=== PATIENT | male | born 1965 | race Caucasian/White ===

== ENCOUNTER 2016-06-27 10:20 | Day surgery (SDC) | payer OTHER ==
[~2016-06-27] VITALS: Ht 175.3 cm; Wt 99.3 kg
[~2016-06-27 10:20] MED LIST: ALBU2.5V36 NEB; AMLO2.5T78 PO; BUDE6HFA INHALATION; ESCI20TA38 PO; HYDR-902 PO; HYDR-906 PO; LIPA1CAP6 PO; MONT10TA21 PO; NIT4 SL; OMEP20CA16 PO; TAMS-14 PO; TIOT18CA IH
[2016-06-27] MEDS ORDERED: abilify (11:57)
[2016-06-27 11:58] VITALS: Ht 175.3 cm; Wt 99.3 kg
[2016-06-27] MEDS ORDERED: NORVASC (12:05)
[2016-06-27 12:37] VITALS: BP 113/59; PULSE 77; RESP 18
[2016-06-27] MEDS ORDERED: PROPOFOL 40 ML ONE (13:57)
[2016-06-27] MEDS ORDERED: LIDOCAINE 2% (SDV) 5 ML INJ ONE (14:52)
[2016-06-27 15:19] VITALS: BP 113/59; PULSE 79; RESP 16
--- NOTE | 2016-06-28 14:44 | GILP ---
DATE OF PROCEDURE: NAME OF PROCEDURES: 1. Colonoscopy with polyp ablation. 2. Colonoscopy with biopsies and localization tattoo. SURGEON: Brooklynn Joseph MD. PREOPERATIVE DIAGNOSIS(ES) POSTOPERATIVE DIAGNOSIS(ES) HISTORY AND INDICATIONS: PREMEDICATION: Monitored anesthesia care by anesthesiologist. INSTRUMENT USED: Olympus colonoscope. PREPARATION: Adequate. TECHNIQUE: After informed consent, with the patient/relatives understanding the procedure, its indic ations potential risks and complications, including but not limited to: allergic reaction, bleeding, perforation, infection, missed lesions and after all pertinent questions were answered to the patie nt's satisfaction, the patient/relatives signed the witnessed informed consent. Following this, premedication was administered slowly IV push by under careful cardiovascular and re spiratory monitoring with pulse oximetry, automatic blood pressure and air sampling and monitoring. Once the sedativ e effect was achieved, the patient was placed in the left lateral decubitus position, digital rectal examination was performed. The colonoscope was then introduced and advanced under visual control th roughout all segments of the colon including: the rectum, sigmoid, descending colon, splenic flexure , transverse colon, hepatic flexure, ascending colon and finally reaching the cecum which was clearl y identified by transillumination, finger indentation and the ileocecal valve. Careful examination o f the mucosa of the lower gastrointestinal tract both on insertion as well as withdrawal of the inst rument disclosed the following findings: Rectal Examination: No evidence of perirectal disease, no masses. Colonic Mucosa: There is a 4 mm polyp in the sigmoid colon which was completely ablated with biopsy forceps. There is moderate diverticulosis in left side of the colon. A 10 mm sessile polyp was noted in the proximal ascending colon. This appears to be not endoscopica lly removable. Multiple biopsies were obtained. Localization tattoo was applied. The ileocecal va lve was clearly identified. The instrument was withdrawn reexamining the mucosa in detail. No jamaal tional abnormalities are noted with the exception of moderate-sized internal hemorrhoids. The instrument was then withdrawn, the patient tolerated the procedure well and was transferred out of the Endoscopy Suite awake and in good condition to continue recovery under observation. IMPRESSION: 1. A 10 mm sessile polyp proximal ascending colon, biopsied and localization tattoo applied. 2. Diverticulosis, left side of the colon, moderate. 3. A 4 mm polyp in the sigmoid colon, ablated. 4. Moderate-sized internal hemorrhoids. PLAN: Pathology will be reviewed as soon as available. Further recommendation will depend on the p atient's clinical course. If polyp is adenomatous, as suspected, surgical excision will be indicate d. Dictated By: BROOKLYNN CRUZ Conf#: [id number] DID#: [id number]
--- NOTE | 2016-06-28 15:29 | GILP ---
DATE OF PROCEDURE: 06/27/2016 PROCEDURE: Esophagogastroduodenoscopy with biopsies. BRIEF HISTORY AND INDICATIONS: The patient is being evaluated for abdominal pain. PREMEDICATION: Monitored anesthesia care by anesthesiologist. SURGEON: Brooklynn Joseph MD. INSTRUMENT USED: scope. TECHNIQUE: After informed consent, with the patient/relatives understanding the procedure, its indic ations, potential risks and complications, including but not limited to: allergic reaction, bleeding , perforation or infection, and after all pertinent questions were answered to the patients satisfac tion, the patient/relatives signed witnessed informed consent. Following this, premedication was administered slowly IV push under careful cardiovascular and respi ratory monitoring with pulse oximetry, automatic blood pressure and monitor car operator. Once the sedative effect was achieved the patient was place in the left lateral decubitus, the panen doscope was introduced and advanced under visual control. Careful examination of the upper gastrointestinal tract, both on insertion as well as withdrawal of the instrument disclosed the following findings: ESOPHAGUS: The mucosa of the entire esophagus appears within normal limits. There is no evidence of esophagitis, varices, neoplasm or stricture. No hiatal hernia identified. STOMACH: Upon entrance to the stomach, air was insufflated, the gastric blanchard distended normally. T here is erythema and edema of the mucosa of a moderate degree. Biopsies were obtained to rule out H . pylori infection. PYLORUS: The pylorus appears patent and within normal limits, with no evidence of gastric outlet obs truction. DUODENUM: The duodenal mucosa was carefully examined in the duodenal bulb as well as the second port ion of the duodenum and appears unremarkable with no evidence of duodenitis, ulcer or neoplasm. The instrument was then withdrawn, the patient tolerated the procedure well and was transfer out of the endoscopy suite awake, and in good condition to continue recovery under observation IMPRESSION: Gastritis, rule out Helicobacter pylori infection, biopsies obtained. PLAN: The patient will be treated with PPIs. Further recommendation will depend on his clinical co urse as well as review of biopsies. Dictated By: BROOKLYNN JOSEPH MS/GUERITA Conf#: [id number] DID#: [id number]
== END 2016-06-27 15:50 | disposition home or self-care (01) ==
LOC: GIL 10:20
PROVIDERS: ATTEND Internal Medicine Gastroenterology
DX: Z12.11 Encounter for screening for malignant neoplasm of colon (principal); D12.2 Benign neoplasm of ascending colon; D12.5 Benign neoplasm of sigmoid colon; K64.8 Other hemorrhoids; I10 Essential (primary) hypertension; E78.5 Hyperlipidemia, unspecified; E66.9 Obesity, unspecified; Z68.32 Body mass index [BMI] 32.0-32.9, adult; J44.9 Chronic obstructive pulmonary disease, unspecified; E11.9 Type 2 diabetes mellitus without complications
CPT/HCPCS: 43239; 45380; 45381; 88305; 88312; Z7610

== ENCOUNTER 2016-06-29 22:52 | Emergency (ER) | payer OTHER ==
[~2016-06-29] VITALS: Ht 177.8 cm; Wt 103.0 kg
[~2016-06-29 22:52] MED LIST changes: -AMLO2.5T78 PO; -BUDE6HFA INHALATION; -HYDR-902 PO; -HYDR-906 PO; -LIPA1CAP6 PO; -MONT10TA21 PO; -NIT4 SL; +NORVASC; -OMEP20CA16 PO; -TAMS-14 PO; -TIOT18CA IH; +abilify
[2016-06-29 22:56] VITALS: Ht 177.8 cm; Wt 103.0 kg
[2016-06-30] MEDS ORDERED: LIDOCAINE/MYLANTA 40 ML BTL PO ONE (04:00)
[2016-06-30] MEDS ORDERED: HYDROCODONE/APAP (10/325) TAB PO ONE (04:30)
--- NOTE | 2016-06-30 04:38 | RADRPT ---
PROCEDURE: XR Abdomen. CLINICAL INDICATION: Abdominal pain after colonoscopy TECHNIQUE: Upright and supine abdominal x-rays were obtained. COMPARISON: 11/11/2007 FINDINGS: The bowel gas pattern is nonobstructive. No definite free air is seen. No definite abnormal calcif ications. Mild degenerative change of the spine and hips. Right upper quadrant clips. IMPRESSION: No definite obstruction or free air. RPTAT: HLBE Keila Leon Physician Date Time Electronically viewed and signed by Keila Leon, Physician on 06/30/2016 04:37 LE/
[2016-06-30 05:24] VITALS: BP 121/68; PULSE 70; RESP 15
[2016-06-30] MEDS ORDERED: HYDR-906 PO (05:50)
[2016-06-30] MEDS ORDERED: RANI150T9 PO (05:50)
[2016-06-30] MEDS ORDERED: NAPR-688 PO (05:50)
--- NOTE | 2016-07-01 06:07 | ERD ---
DATE OF SERVICE: 06/30/2016 HISTORY OF PRESENT ILLNESS: This 50-year-old male presents to the emergency room for diffuse abdomin al pain for 2 days. He has had the pain since he had his colonoscopy performed. It is described as a generalized discomfort. Denies diarrhea. He is still passing gas. He said the findings of the colonoscopy and the ED were that he has gastritis of the stomach and no serious colon lesions. He d enies nausea or vomiting. REVIEW OF SYSTEMS: A 10-point review of systems was obtained and negative except as in the HPI. PAST MEDICAL HISTORY: COPD, hypertension. PAST SURGICAL HISTORY: Cholecystectomy, tonsillectomy, appendectomy, hernia surgery, ankle surgery, shoulder surgery. FAMILY HISTORY: Denies a family history of colon cancer. SOCIAL HISTORY: Daily smoker. He does not use other drugs or alcohol. PHYSICAL EXAMINATION: VITAL SIGNS: Temperature 98, pulse 89, blood pressure 112/64, respirations 20, oxygen saturation 99 % on room air. GENERAL: In no acute distress. HEENT: Normocephalic, atraumatic. CARDIAC: Regular rate and rhythm. No murmurs. LUNGS: Clear to auscultation bilaterally. ABDOMEN: Very mild diffuse tenderness, with very slight tympanic distention. No guarding, no rebou nd. Bowel sounds present in all 4 quadrants. EXTREMITIES: No cyanosis, clubbing or edema. NEUROLOGIC: Alert and oriented x3. No focal deficits. SKIN: No rashes or other lesions. DIAGNOSTIC DATA: Abdominal x-ray interpretation: No free air, no obstruction, no bony abnormalitie s, no abnormal calcifications. EMERGENCY DEPARTMENT COURSE AND MEDICAL DECISION MAKING: The patient was given a GI cocktail, which relieved the epigastric burning pain. He was then given Mcgehee, which significantly decreased his a bdominal pain. More than likely the discomfort is from retention of some air status post colonosco py. No signs of perforation. The patient's pain was reduced in the emergency room. the pain will continue to decrease as his body processes the air and reabsorbs it or passes it. Giving him a follow up with his primary care doctor, as well as Dr. Joseph, who performed the procedure. There is a benign abdominal exam at this time. I am discharging him with naproxen and Mcgehee for the disc omfort, as well as Zantac for the gastritis, that he says he is not getting any medication for. DISCHARGE DIAGNOSES: 1. Abdominal pain status post colonoscopy. 2. Gastritis. DISPOSITION: Home, in stable condition. Dictated By: ROSLYN HESTER/GUERITA Conf#: [id number] DID#: [id number]
== END 2016-06-30 05:58 | disposition home or self-care (01) ==
LOC: E/R 22:52
DX: G89.18 Other acute postprocedural pain (principal); R10.84 Generalized abdominal pain; K29.70 Gastritis, unspecified, without bleeding; J44.9 Chronic obstructive pulmonary disease, unspecified; I10 Essential (primary) hypertension; F17.210 Nicotine dependence, cigarettes, uncomplicated
CPT/HCPCS: 74010; Z7610

== ENCOUNTER 2016-09-04 22:13 | Emergency (ER) | payer OTHER ==
[~2016-09-04] VITALS: Ht 175.3 cm; Wt 104.5 kg
[~2016-09-04 22:13] MED LIST changes: +HYDR-906 PO; +NAPR-688 PO; +RANI150T9 PO
[2016-09-04 22:20] VITALS: Ht 175.3 cm; Wt 104.5 kg
[2016-09-05] MEDS ORDERED: ALBUTEROL/IPRATROPIUM (NEB) 3 ML AMP HHN STA (00:28)
[2016-09-05] MEDS ORDERED: HYDROCODONE/APAP (5/325) TAB PO ONE (00:30)
--- NOTE | 2016-09-05 01:07 | ERD ---
ER Documentation Chief Complaint Date/Time DATE: 09/05/16 TIME: 00:57 Chief Complaint left rib pain x 4 days. denies new injury, hx of rib fx HPI 51-year-old male with history of COPD presents with chief complaint of left and right mid axillary chest wall pain 4 days. Patient states that he has a history of a rib fracture in this area and history of pneumothorax in his left lung after an injury that occurred months ago. He denies pain over the front of his chest, palpitations, diaphoresis, nausea/vomiting, and fever. He does report mild shortness of breath, states that he is short of breath often due to his history of COPD. He states that he continues to smoke a pack and a half a day. He currently rates his rib pain 8 out of 10 in severity, took 600 mg of ibuprofen without relief. Pain is aggravated with deep inhalations and laying on his left side. ROS All systems reviewed and are negative except as per history of present illness. Medications Home Meds Active Scripts Tramadol HCl (Tramadol HCl) 50 Mg Tablet, 50 MG PO Q4 Y for PAIN, #20 TAB Prov:Katherine Branch PA-C 09/05/16 Ibuprofen* (Motrin*) 400 Mg Tab, 400 MG PO Q6, #30 TAB Prov:Katherine Branch PA-C 09/05/16 Naproxen* (Naproxen*) 500 Mg Tablet, 500 MG PO BID Y for PAIN, #20 TAB Prov:ROSLYN RODRIGUEZ DO 06/30/16 Hydrocodone/Acetaminophen ([place] 5-325 Tablet) 1 Each Tablet, 1 EACH PO Q6, #10 TAB Prov:ROSLYN RODRIGUEZ DO 06/30/16 Ranitidine Hcl* (Zantac*) 150 Mg Tablet, 150 MG PO BID Y for EPIGASTRIC PAIN, # 30 TAB Prov:ROSLYN RODRIGUEZ DO 06/30/16 Reported Medications [Norvasc] No Conflict Check 06/27/16 [abilify] No Conflict Check 06/27/16 Escitalopram Oxalate* (Escitalopram Oxalate*) 20 Mg Tablet, 30 MG PO DAILY, TAB 06/15/14 Albuterol Sulfate* (Albuterol Sulfate* Neb) 0.5%-0.5 Ml Neb, 1.25 MG NEB Q3H Y for WHEEZING AND SOB, EA 06/15/14 Allergies Allergies: Coded Allergies: penicillin G (Verified Allergy, Mild, 04/22/16) fluphenazine (Verified Allergy, Unknown, cause extrapyramidol, 04/22/16) haloperidol (Verified Allergy, Unknown, cause extrapyramidol, 04/22/16) ketorolac (Verified Allergy, Unknown, 04/22/16) olanzapine (Verified Allergy, Unknown, cause extrapyramidol, 04/22/16) ziprasidone (Verified Allergy, Unknown, 04/22/16) PMhx/Soc History of Surgery: Yes (CHOLECYSTECTOMY, TONSILLECTOMY, APPENDECTOMY, HERNIA REPAIR, ANKLE SX, SHOU) Anesthesia Reaction: No Hx Neurological Disorder: No Hx Respiratory Disorders: Yes (COPD) Hx Cardiac Disorders: Yes (HTN) Hx Psychiatric Problems: Yes (MOOD DISORDER) Hx Miscellaneous Medical Probl: Yes (DIVERTICULITIS, GERD, L rib fracture, L lung collapse p fall) Hx Alcohol Use: No Hx Substance Use: No Hx Tobacco Use: Yes (1.5 packs/ day) Smoking Status: Current some day smoker Physical Exam Vitals Vital Signs Date Time Temp Pulse Resp B/P Pulse Ox O2 Delivery O2 Flow Rate FiO2 09/05/16 00:50 75 20 98 21 09/04/16 22:20 97.0 79 20 142/65 96 Physical Exam GENERAL: Non-toxic. No apparent signs of distress. Patient speaking in full sentences without any signs of respiratory distress. HEENT: Atraumatic. Bilateral eyes are PERRL EOM intact. Normal conjunctiva, no injection. No eyelid or lower eyelid swelling noted. Ears: Normal tympanic membrane, no erythema or bulging. No ear canal swelling. No ear discharge. Nose : no nasal discharge. Throat: Oropharynx normal. Tongue pink and moist. No tonsillar swelling or tonsillar exudates. No lymphadenopathy. LUNGS: Clear to auscultation. No accessory muscle use. Mild expiratory wheezing on auscultation. No rales or rhonchi . no signs or symptoms of respiratory distress. HEART: Regular rate and rhythm. No murmurs, clicks, rubs or gallops. CHEST: Tenderness palpation over 7 through ninth ribs over left mid axillary line. Pain is reproducible with palpation to this area. No edema or ecchymosis. ABDOMEN: Soft, nontender and nondistended. Bowel sounds positive. No rebound or guarding. No gross peritoneal signs. No Helms or McBurney point tenderness. No gross masses. BACK: No midline tenderness, no costovertebral tenderness. EXTREMITIES: No peripheral cyanosis or edema. No focal pain or notable trauma. Full range of motion. Good capillary refill. NEURO: The patient moves all 4 extremities with 5/5 strength. Cranial nerves are grossly intact. Normal mental status for age. Good muscle tone. SKIN: There is no apparent rash, petechiae, erythema or swelling. Good skin turgor. Results 24 hrs Current Medications Medications (Trade) Dose Ordered Sig/Madeline Route PRN Reason Start Time Stop Time Status Last Admin Dose Admin Acetaminophen/ Hydrocodone Bitart ([place] (5/325)) 1 tab ONCE ONCE PO 09/05/16 00:30 09/05/16 00:31 DC 09/05/16 00:15 Albuterol/ Ipratropium (Duoneb) 3 ml ONCE STAT HHN 09/05/16 00:28 09/05/16 00:30 DC 09/05/16 00:50 Procedures/MDM Patient presents with complaint of chest wall pain. States that he has had history of rib fractures over right mid axillary area. It is reassuring that the pain is reproducible with palpation to this area, and is aggravated by deep inhalations. This suggests that cardiac etiology is less likely. Patient denies history of cardiac problems. States he has a history of COPD. Continues to smoke. Smoking cessation was discussed for at least 3 minutes, patient warned about health risks associated with smoking. Patient stated that pain is currently 8 out of 10 in severity. Took Motrin without relief. I ordered a [place] for pain relief in the ER, and ordered rib x-ray to confirm healing of previous rib fractures and chest x-ray to rule out pneumothorax and pneumonia. At this time a low suspicion for MO, aortic dissection, pericarditis, pneumonia , and tamponade. Awaiting results of x-ray prior to further management. Patient tolerated treatment of Stratford well, reports mild relief of pain Ribs x-ray (interpretation by radiologist): IMPRESSION: No acute fracture or subluxation. Chest x-ray (interpretation by radiologist): IMPRESSION: Mild left basilar subsegmental atelectasis and/or scarring. Patient was given a DuoNeb breathing treatment in the ER, he reported relief of his shortness of breath afterwards. Wheezing on auscultation had improved. Patient's O2 saturation in triage was 96%, and he displayed no signs of respiratory distress. I explained the imaging workup to the patient, explained that pain may be due to scarring from previous injuries or costochondritis due to chronic cough from his COPD. I suggested use of NSAIDs, patient reports allergy to Toradol on his list of allergies however when I asked him if he used ibuprofen before he says he uses Advil often without any problems. I provided a prescription of ibuprofen 400 mg along with a prescription of tramadol for episodes when his pain is not relieved by Motrin. At this time low suspicion for rib fracture, pneumothorax, and pleural effusion. Patient stable for discharge and outpatient management. Advised to follow-up with PCP of community clinic in 1-2 days. Departure Diagnosis: Primary Impression: Chest wall pain Additional Impression: Costochondritis Condition: Good Katherine Branch PA-C Sep 05, 2016 01:07
--- NOTE | 2016-09-05 01:32 | RADRPT ---
PROCEDURE: Ribs 3 views. AP view chest CLINICAL INDICATION: Pain. TECHNIQUE: 3 views of the right ribs were obtained. Single AP view chest was obtained. COMPARISON: No pertinent prior examinations were submitted for comparison. FINDINGS: No definite fracture or subluxation is identified. No destructive osseous lesions are seen. The lungs are clear. The cardiomediastinal silhouette is unremarkable. IMPRESSION: No acute fracture or subluxation. RPTAT: HIKT .Jose Eduardo Irving MD, MD Date Time Electronically viewed and signed by .Jose Eduardo Irving MD, on 09/05/2016 01:32 .T/
--- NOTE | 2016-09-05 02:29 | RADRPT ---
PROCEDURE: CHEST - 2 VIEW CLINICAL INDICATION: 51-year-old male with left-sided chest pain and cough. TECHNIQUE: PA and lateral views of the chest were performed. The images were reviewed on a PACS w orkstation. COMPARISON: Chest x-ray April 22, 2016. FINDINGS: The cardiomediastinal silhouette is within normal limits. There is mild left basilar subsegmental a telectasis and/or scarring. There is no evidence for an infiltrate. There is no evidence for conges tive heart failure. There is no evidence for pneumothorax. The osseous structures are intact. IMPRESSION: Mild left basilar subsegmental atelectasis and/or scarring. .Abdullahi Santiago MD, MD Date Time Electronically viewed and signed by .Abdullahi Santiago MD, on 09/05/2016 02:28 .Nia/
[2016-09-05] MEDS ORDERED: TRAM50TA2 PO (03:09)
[2016-09-05] MEDS ORDERED: IBUP400T22 PO (03:09)
[2016-09-05 03:18] VITALS: BP 132/61; PULSE 69; RESP 16
== END 2016-09-05 03:20 | disposition home or self-care (01) ==
LOC: FTE 22:13
DX: R07.89 Other chest pain (principal); M94.0 Chondrocostal junction syndrome [Tietze]; I10 Essential (primary) hypertension; J44.9 Chronic obstructive pulmonary disease, unspecified; F17.210 Nicotine dependence, cigarettes, uncomplicated
CPT/HCPCS: 71020; 71100; 94664; Z7502; Z7610

== ENCOUNTER 2016-09-08 18:04 | Emergency (ER) | payer OTHER ==
[~2016-09-08] VITALS: Ht 175.3 cm; Wt 103.0 kg
[~2016-09-08 18:04] MED LIST changes: +IBUP400T22 PO; +TRAM50TA2 PO
[2016-09-08 18:38] VITALS: Ht 175.3 cm; Wt 103.0 kg
[2016-09-08 21:39] VITALS: BP 113/67; PULSE 75; RESP 20; TEMP 98
--- NOTE | 2016-09-08 21:42 | ERA ---
ER Documentation Chief Complaint Date/Time DATE: 09/08/16 TIME: 21:40 Chief Complaint on and off chest pain x 2 weeks HPI The patient is a 51-year-old male, presenting with intermittent left-sided chest discomfort for 2 weeks. He was seen in the ER 3 days ago for similar symptoms, had chest x-ray and ribs x-ray that was unremarkable. The pain is worse with movement. He had an echocardiogram about 5 months ago and has not seen his physician to go over the results. He complains of bilateral hand numbness and bilateral leg numbness intermittently for the last 2 weeks. He denies fever, chills, neck pain, chest pain with exertion or vomiting or diaphoresis. He denies abdominal pain, nausea, vomiting, dysuria, diarrhea, constipation. He smokes, quit drinking a few months ago, denies any illicit drug Past medical history: COPD, hypertension, mood disorder, GERD Past surgical history: Cholecystectomy, appendectomy ROS All systems reviewed and are negative except as per history of present illness. Medications Home Meds Reported Medications Omeprazole* (Omeprazole*) 40 Mg Capsule.dr, 40 MG PO DAILY, #30 CAP 09/08/16 Multivitamin (MULTI VITAMIN DAILY) 1 Each Tablet, 1 TAB PO DAILY, TAB 09/08/16 Amlodipine Besylate* (Amlodipine Besylate*) 10 Mg Tablet, 10 MG PO DAILY, #30 TAB 09/08/16 Escitalopram Oxalate* (Lexapro*) 10 Mg Tablet, 30 MG PO QHS, #30 TAB TAKE 3 TAB 09/08/16 Aripiprazole* (Abilify*) 5 Mg Tab, 5 MG PO DAILY, #30 TAB 09/08/16 Albuterol Sulfate* (Albuterol Sulfate* Neb) 0.5%-0.5 Ml Neb, 1.25 MG NEB Q3H Y for WHEEZING AND SOB, EA 06/15/14 Discontinued Reported Medications [Norvasc] No Conflict Check 06/27/16 [abilify] No Conflict Check 06/27/16 Escitalopram Oxalate* (Escitalopram Oxalate*) 20 Mg Tablet, 30 MG PO DAILY, TAB 06/15/14 Discontinued Scripts Tramadol HCl (Tramadol HCl) 50 Mg Tablet, 50 MG PO Q4 Y for PAIN, #20 TAB Prov:Katherine Branch PA-C 09/05/16 Ibuprofen* (Motrin*) 400 Mg Tab, 400 MG PO Q6, #30 TAB Prov:Katherine Branch PA-C 09/05/16 Naproxen* (Naproxen*) 500 Mg Tablet, 500 MG PO BID Y for PAIN, #20 TAB Prov:ROSLYN RODRIGUEZ DO 06/30/16 Hydrocodone/Acetaminophen ([place] 5-325 Tablet) 1 Each Tablet, 1 EACH PO Q6, #10 TAB Prov:ROSLYN RODRIGUEZ DO 06/30/16 Ranitidine Hcl* (Zantac*) 150 Mg Tablet, 150 MG PO BID Y for EPIGASTRIC PAIN, # 30 TAB Prov:ROSLYN RODRIGUEZ DO 06/30/16 Allergies Allergies: Coded Allergies: penicillin G (Verified Allergy, Mild, 09/08/16) fluphenazine (Verified Allergy, Unknown, cause extrapyramidol, 09/08/16) haloperidol (Verified Allergy, Unknown, cause extrapyramidol, 09/08/16) ketorolac (Verified Allergy, Unknown, 09/08/16) olanzapine (Verified Allergy, Unknown, cause extrapyramidol, 09/08/16) ziprasidone (Verified Allergy, Unknown, 09/08/16) PMhx/Soc History of Surgery: Yes (CHOLECYSTECTOMY, TONSILLECTOMY, APPENDECTOMY, HERNIA REPAIR, ANKLE SX, SHOU) Anesthesia Reaction: No Hx Neurological Disorder: No Hx Respiratory Disorders: Yes (COPD) Hx Cardiac Disorders: Yes (HTN) Hx Psychiatric Problems: Yes (MOOD DISORDER) Hx Miscellaneous Medical Probl: Yes (DIVERTICULITIS, GERD, L rib fracture, L lung collapse p fall) Hx Alcohol Use: No Hx Substance Use: No Hx Tobacco Use: Yes (1.5 packs/ day) Physical Exam Vitals Vital Signs Date Time Temp Pulse Resp B/P Pulse Ox O2 Delivery O2 Flow Rate FiO2 09/08/16 21:39 98.0 75 20 113/67 96 Room Air 09/08/16 18:38 97.4 71 20 143/68 96 Physical Exam Const: No acute distress. Head: Atraumatic. Eyes: Normal Conjunctiva. ENT: Normal External Ears, Nose and Mouth. Neck: Full range of motion. No meningismus. Resp: Clear to auscultation bilaterally. Cardio: Regular rate and rhythm, no murmurs. Mild left chest wall tenderness with palpation, no crepitus, no erythema Abd: Soft, non distended, normal bowel sounds, non tender. Skin: No petechiae or rashes. Back: No midline or flank tenderness. Ext: No cyanosis, or edema. Neur: Awake and alert. No focal deficit Psych: Normal Mood and Affect. Procedures/MDM EKG: Read by emergency physician Rate/Rhythm: Normal Sinus Rhythm 77 beats/min QRS, ST, T-waves: No ST elevation, no T inversion, right axis deviation Impression: Abnormal EKG MEDICAL MAKING DECISION: The patient is a 51-year-old male, presenting with acute left chest wall pain of unclear etiology and paresthesia of unclear etiology. I do not suspect ACS in the patient. The differential diagnoses considered include but are not limited to acute coronary syndrome, acute myocardial infarction, pericarditis, pulmonary embolism, aortic dissection, pneumonia, pleural effusion, pneumothorax, GERD, chest wall pain. Departure Diagnosis: Primary Impression: Chest wall pain Condition: Good Comments I discussed the findings with the patient. I advised the patient to follow-up with the primary physician in about 1-2 days, sooner if needed and return if any concern. JESSY ANNA MD Sep 08, 2016 21:42
[2016-09-08] MEDS ORDERED: ARIP5TAB7 PO (21:59)
[2016-09-08] MEDS ORDERED: ESCI10TA PO (22:00)
[2016-09-08] MEDS ORDERED: AMLO-147 PO (22:02)
[2016-09-08] MEDS ORDERED: MULT-761 PO (22:02)
[2016-09-08] MEDS ORDERED: OMEP40CA6 PO (22:03)
== END 2016-09-08 22:21 | disposition home or self-care (01) ==
LOC: E/R 18:04
DX: R07.89 Other chest pain (principal); J44.9 Chronic obstructive pulmonary disease, unspecified; I10 Essential (primary) hypertension; F17.210 Nicotine dependence, cigarettes, uncomplicated
CPT/HCPCS: 93005; Z7502

== ENCOUNTER 2016-11-21 15:46 | Emergency (ER) | payer OTHER ==
[~2016-11-21] VITALS: Ht 175.3 cm; Wt 94.0 kg
[~2016-11-21 15:46] MED LIST changes: +AMLO-147 PO; +ARIP5TAB7 PO; +ESCI10TA PO; -ESCI20TA38 PO; -HYDR-906 PO; -IBUP400T22 PO; +MULT-761 PO; -NAPR-688 PO; -NORVASC; +OMEP40CA6 PO; -RANI150T9 PO; -TRAM50TA2 PO; -abilify
[2016-11-21 15:56] VITALS: Ht 175.3 cm; Wt 94.0 kg
[2016-11-21] MEDS ORDERED: ONDANSETRON (ODT) 4 MG TAB ODT STA (17:43)
[2016-11-21] MEDS ORDERED: ONDA4TAB14 PO (17:45)
[2016-11-21 18:07] VITALS: BP 117/65; PULSE 80; RESP 18
--- NOTE | 2016-11-21 19:33 | ERD ---
ER Documentation Chief Complaint Date/Time DATE: 11/21/16 TIME: 19:31 Chief Complaint AP and vomiting X 4 days. recently had a colon rsxn. HPI Patient is a 51-year-old male with COPD and chronic pain who presents with abdominal pain. He said that he had surgery 1.5 months ago at [facility]. He said that he started with abdominal pain and vomiting on Monday. He said chills but no fevers. He took [place] 5 hours ago. He says that he has [place] at home. He is seeing his surgeon on November 24 for repeat evaluation. He does not currently have a pain management doctor. Upon review of old medical records the patient has multiple visits to the emergency department. Review of the emergency department information exchange system shows visits to 6 separate emergency departments. ROS All systems reviewed and are negative except as per history of present illness. Medications Home Meds Active Scripts Ondansetron (Ondansetron Odt) 4 Mg Tab.rapdis, 4 MG PO Q6H Y for NAUSEA AND/OR VOMITING, #30 TAB Prov:ISAC WILLSON MD 11/21/16 Reported Medications Omeprazole* (Omeprazole*) 40 Mg Capsule.dr, 40 MG PO DAILY, #30 CAP 09/08/16 Multivitamin (MULTI VITAMIN DAILY) 1 Each Tablet, 1 TAB PO DAILY, TAB 09/08/16 Amlodipine Besylate* (Amlodipine Besylate*) 10 Mg Tablet, 10 MG PO DAILY, #30 TAB 09/08/16 Escitalopram Oxalate* (Lexapro*) 10 Mg Tablet, 30 MG PO QHS, #30 TAB TAKE 3 TAB 09/08/16 Aripiprazole* (Abilify*) 5 Mg Tab, 5 MG PO DAILY, #30 TAB 09/08/16 Albuterol Sulfate* (Albuterol Sulfate* Neb) 0.5%-0.5 Ml Neb, 1.25 MG NEB Q3H Y for WHEEZING AND SOB, EA 06/15/14 Allergies Allergies: Coded Allergies: penicillin G (Verified Allergy, Mild, 09/08/16) fluphenazine (Verified Allergy, Unknown, cause extrapyramidol, 09/08/16) haloperidol (Verified Allergy, Unknown, cause extrapyramidol, 09/08/16) ketorolac (Verified Allergy, Unknown, 09/08/16) olanzapine (Verified Allergy, Unknown, cause extrapyramidol, 09/08/16) ziprasidone (Verified Allergy, Unknown, 09/08/16) PMhx/Soc History of Surgery: Yes (CHOLECYSTECTOMY, TONSILLECTOMY, APPENDECTOMY, HERNIA REPAIR, ANKLE SX, SHOU) Anesthesia Reaction: No Hx Neurological Disorder: No Hx Respiratory Disorders: Yes (COPD) Hx Cardiac Disorders: Yes (HTN) Hx Psychiatric Problems: Yes (MOOD DISORDER) Hx Miscellaneous Medical Probl: Yes (DIVERTICULITIS, GERD, L rib fracture, L lung collapse p fall) Hx Alcohol Use: No Hx Substance Use: No Hx Tobacco Use: Yes (1.5 packs/ day) Smoking Status: Current every day smoker FmHx Family History: diabetes Physical Exam Vitals Vital Signs Date Time Temp Pulse Resp B/P Pulse Ox O2 Delivery O2 Flow Rate FiO2 11/21/16 18:07 80 18 117/65 99 Room Air 11/21/16 15:56 98.4 92 18 134/77 95 Physical Exam Const: No acute distress Head: Atraumatic Eyes: Normal Conjunctiva ENT: Normal External Ears, Nose and Mouth. Neck: Full range of motion..~ No meningismus. Resp: Clear to auscultation bilaterally Cardio: Regular rate and rhythm, no murmurs Abd: Soft, diffuse tenderness to palpation without rebound or guarding Skin: No petechiae or rashes Back: No midline or flank tenderness Ext: No cyanosis, or edema Neur: Awake and alert Psych: Normal Mood and Affect Results 24 hrs Current Medications Medications (Trade) Dose Ordered Sig/Madeline Route PRN Reason Start Time Stop Time Status Last Admin Dose Admin Ondansetron HCl (Zofran Odt) 4 mg ONCE STAT ODT 11/21/16 17:43 11/21/16 17:44 DC Procedures/MDM Smoking Cessation Therapy: Pt. was lectured for greater than 3 minutes on the health risks of continued smoking and the benefits of cessation. Patient is a 51-year-old male who presents with acute abdominal pain and vomiting. The patient has multiple visits to our emergency department as well as 5 other emergency departments for abdominal pain. I do not believe that the patient requires further workup or imaging tests at this time. I believe the risks of a CT scan would outweigh the benefits given the risk of radiation. At this point I doubt bowel obstruction, appendicitis, cholestatic, or pancreatitis. The patient will be given Zofran for nausea and vomiting. I do believe there may be an element of drug-seeking behavior. The patient will be given a prescription for Zofran but no prescription for narcotics. He says that he has [place] at home. He can return for any worsening symptoms. Departure Diagnosis: Primary Impression: Vomiting Vomiting type: unspecified Vomiting Intractability: non-intractable Nausea presence: with nausea Qualified Code: R11.2 - Non-intractable vomiting with nausea, unspecified vomiting type Additional Impression: Abdominal pain Abdominal location: generalized Qualified Code: R10.84 - Generalized abdominal pain Condition: Fair Patient Instructions: Abdominal Pain, Vomiting (6Y-Adult) Referrals: RONI TOLEDO Additional Instructions: SPECIALIST: YOU HAVE A MEDICAL CONDITION WHICH REQUIRES YOU TO SEE A SPECIALIST WITHIN THE NEXT 1-2 DAYS. PLEASE FOLLOW UP WITH YOUR PRIMARY PHYSICIAN FOR REFFERAL.IF YOU DO NOT HAVE A PRIMARY CARE PHYSICIAN AND/OR YOU CAN NOT AFFORD TO SEE A PHYSICIAN THE FOLLOWING RESOURCES HAVE BEEN SUPPLIED TO YOU. IT IS YOUR RESPONSIBILITY TO BE SEEN BY THE SPECIALIST ISAC WILLSON MD Nov 21, 2016 19:33
== END 2016-11-21 18:08 | disposition home or self-care (01) ==
LOC: E/R 15:46
DX: R11.2 Nausea with vomiting, unspecified (principal); R10.84 Generalized abdominal pain; J44.9 Chronic obstructive pulmonary disease, unspecified; I10 Essential (primary) hypertension; F17.210 Nicotine dependence, cigarettes, uncomplicated
CPT/HCPCS: Z7502; Z7610; 99283

== ENCOUNTER 2017-01-20 21:00 | Emergency (ER) | payer OTHER ==
[~2017-01-20] VITALS: Ht 175.3 cm; Wt 90.5 kg
[~2017-01-20 21:00] MED LIST changes: +ONDA4TAB14 PO
[2017-01-20 21:12] VITALS: Ht 175.3 cm; Wt 90.5 kg
--- NOTE | 2017-01-21 00:47 | ERA ---
ER Documentation Chief Complaint Date/Time DATE: 01/21/17 TIME: 00:46 Chief Complaint AP x4 days. HPI The patient is a 51-year-old male, presenting with acute abdominal pain intermittently for the last 4 days, associated with diarrhea. He was seen at [facility] yesterday and had a CAT scan of the abdomen and the pelvic that show mild colitis. He was discharged with Levaquin. He came back to the ER requesting for pain medication, denies fever, chills, neck pain, chest pain, nausea, vomiting. He is smokes and drinks, denies drinking or using illicit drug Past medical history: Hypertension, psychiatric illness Past surgical history: Cholecystectomy, right hemicolectomy, small bowel obstruction ROS All systems reviewed and are negative except as per history of present illness. Medications Home Meds Active Scripts Tramadol Hcl* (Ultram*) 50 Mg Tablet, 50 MG PO Q6H Y for PAIN, #10 TAB Prov:JESSY ANNA MD 01/21/17 Metronidazole* (Flagyl*) 500 Mg Tablet, 500 MG PO TID for 10 Days, TAB Prov:JESSY ANNA MD 01/21/17 Ondansetron (Ondansetron Odt) 4 Mg Tab.rapdis, 4 MG PO Q6H Y for NAUSEA AND/OR VOMITING, #30 TAB Prov:ISAC WILLSON MD 11/21/16 Reported Medications Omeprazole* (Omeprazole*) 40 Mg Capsule.dr, 40 MG PO DAILY, #30 CAP 09/08/16 Multivitamin (MULTI VITAMIN DAILY) 1 Each Tablet, 1 TAB PO DAILY, TAB 09/08/16 Amlodipine Besylate* (Amlodipine Besylate*) 10 Mg Tablet, 10 MG PO DAILY, #30 TAB 09/08/16 Escitalopram Oxalate* (Lexapro*) 10 Mg Tablet, 30 MG PO QHS, #30 TAB TAKE 3 TAB 09/08/16 Aripiprazole* (Abilify*) 5 Mg Tab, 5 MG PO DAILY, #30 TAB 09/08/16 Albuterol Sulfate* (Albuterol Sulfate* Neb) 0.5%-0.5 Ml Neb, 1.25 MG NEB Q3H Y for WHEEZING AND SOB, EA 06/15/14 Allergies Allergies: Coded Allergies: penicillin G (Verified Allergy, Mild, 09/08/16) fluphenazine (Verified Allergy, Unknown, cause extrapyramidol, 09/08/16) haloperidol (Verified Allergy, Unknown, cause extrapyramidol, 09/08/16) ketorolac (Verified Allergy, Unknown, 09/08/16) olanzapine (Verified Allergy, Unknown, cause extrapyramidol, 09/08/16) ziprasidone (Verified Allergy, Unknown, 09/08/16) PMhx/Soc History of Surgery: Yes (CHOLECYSTECTOMY, TONSILLECTOMY, APPENDECTOMY, HERNIA REPAIR, ANKLE SX, SHOU) Anesthesia Reaction: No Hx Neurological Disorder: No Hx Respiratory Disorders: Yes (COPD) Hx Cardiac Disorders: Yes (HTN) Hx Psychiatric Problems: Yes (MOOD DISORDER) Hx Miscellaneous Medical Probl: Yes (DIVERTICULITIS, GERD, L rib fracture, L lung collapse p fall) Hx Alcohol Use: No Hx Substance Use: No Hx Tobacco Use: Yes (1.5 packs/ day) Physical Exam Vitals Vital Signs Date Time Temp Pulse Resp B/P Pulse Ox O2 Delivery O2 Flow Rate FiO2 01/20/17 21:12 98.6 90 20 117/69 98 Physical Exam Const: No acute distress. Head: Atraumatic. Eyes: Normal Conjunctiva. ENT: Normal External Ears, Nose and Mouth. Neck: Full range of motion. No meningismus. Resp: Clear to auscultation bilaterally. Cardio: Regular rate and rhythm. Abd: Soft, non distended, normal bowel sounds, Mild, vague and diffuse abdominal tenderness Skin: No petechiae or rashes. Back: No midline or flank tenderness. Ext: No cyanosis, or edema. Neur: Awake and alert. No focal deficit Psych: Normal Mood and Affect. Result Diagram: 01/21/1710401/21/17104 Results 24 hrs Laboratory Tests Test 01/21/17 01:05 01/21/17 01:35 White Blood Count 6.710^3/ul Red Blood Count 4.6810^6/ul Hemoglobin 14.4g/dl Hematocrit 43.6% Mean Corpuscular Volume 93.2fl Mean Corpuscular Hemoglobin 30.8pg Mean Corpuscular Hemoglobin Concent 33.0g/dl Red Cell Distribution Width 13.2% Platelet Count 12553^3/UL Mean Platelet Volume 9.9fl Neutrophils % 68.5% Lymphocytes % 22.3% Monocytes % 6.4% Eosinophils % 2.1% Basophils % 0.3% Nucleated Red Blood Cells % 0.0/100WBC Neutrophils # (Manual) 4.610^3/ul Lymphocytes # 1.510^3/ul Monocytes # 0.410^3/ul Eosinophils # 0.110^3/ul Basophils # 0.010^3/ul Nucleated Red Blood Cells # 0.010^3/ul Sodium Level 139mmol/L Potassium Level 4.7mmol/L Chloride Level 104mmol/L Carbon Dioxide Level 31mmol/L Anion Gap 9 Blood Urea Nitrogen 8mg/dl Creatinine 0.66mg/dl Glucose Level 69mg/dl Calcium Level 9.1mg/dl Total Bilirubin 0.3mg/dl Direct Bilirubin 0.00mg/dl Indirect Bilirubin 0.3mg/dl Aspartate Amino Transf (AST/SGOT) 22IU/L Alanine Aminotransferase (ALT/SGPT) 29IU/L Alkaline Phosphatase 88IU/L Total Protein 6.6g/dl Albumin 3.6g/dl Globulin 3.00g/dl Albumin/Globulin Ratio 1.20 Lipase 40U/L Bedside Urine pH (LAB) 5.5 Bedside Urine Protein (LAB) Negative Bedside Urine Glucose (UA) Negative Bedside Urine Ketones (LAB) Negative Bedside Urine Blood Negative Bedside Urine Nitrite (LAB) Negative Bedside Urine Leukocyte Esterase (L Negative Current Medications Medications (Trade) Dose Ordered Sig/Madeline Route PRN Reason Start Time Stop Time Status Last Admin Dose Admin Morphine Sulfate (morphine) 2 mg ONCE ONCE IV 01/21/17 02:00 01/21/17 02:01 DC 01/21/17 01:41 Ondansetron HCl (Zofran Inj) 4 mg ONCE STAT IV 01/21/17 01:32 01/21/17 01:34 DC 01/21/17 01:41 Procedures/MDM MEDICAL MAKING DECISION: The patient is a 51-year-old male, presenting with mild acute colitis. He was treated with morphine 2 mg IV for pain and Zofran 4 mg IV for nausea with good response. The differential diagnoses considered include but are not limited to cholelithiasis, cholecystitis, cystitis, pancreatitis, hepatitis, gastritis, peptic ulcer disease, gastric ulcer, appendicitis, diverticulitis, cholangitis, choledocholithiasis, partial small bowel obstruction. Departure Diagnosis: Primary Impression: Acute colitis Condition: Good Additional Instructions: He was advised to continue Levaquin, I discharged him with additional Flagyl and Ultram I discussed the findings with the patient. I advised the patient to follow-up with the primary physician in about 1-2 days, sooner if needed and return if any concern. JESSY ANNA MD Jan 21, 2017 00:47
[2017-01-21 01:28] LABS: URINE BLOOD (Dip) POC Negative (NEGATIVE)
[2017-01-21 01:30] LABS: BASOPHILS % 0.3 % (0.0-2.0); EOSINOPHILS # 0.1 10^3/ul (0.0-0.5); EOSINOPHILS % 2.1 % (0.0-7.0); HEMATOCRIT 43.6 % (42.0-52.0); HEMOGLOBIN 14.4 g/dl (14.0-18.0); LYMPHOCYTES # 1.5 10^3/ul (0.8-2.9); LYMPHOCYTES % 22.3 % (15.0-51.0); MEAN CORPUSCULAR HEMOGLOBIN 30.8 pg (29.0-33.0); MEAN CORPUSCULAR VOLUME 93.2 fl (82.0-101.0); MEAN PLATELET VOLUME 9.9 fl (7.4-10.4); MONOCYTE # 0.4 10^3/ul (0.3-0.9); MONOCYTES % 6.4 % (0.0-11.0); NEUTROPHILS % 68.5 % (39.0-77.0); PLATELET COUNT 248 10^3/UL (140-415); POSITIVE DIFF @See below; RED BLOOD COUNT 4.68 10^6/ul (4.70-6.10); RED CELL DISTRIBUTION WIDTH 13.2 % (11.5-14.5); WHITE BLOOD COUNT 6.7 10^3/ul (4.8-10.8)
[2017-01-21] MEDS ORDERED: ONDANSETRON 4 MG INJ IV STA (01:32)
[2017-01-21 01:45] LABS: ALBUMIN 3.6 g/dl (3.3-4.9); ALBUMIN/GLOBULIN RATIO 1.2; BILIRUBIN,INDIRECT 0.3 mg/dl (0-1.1); BILIRUBIN,TOTAL 0.3 mg/dl (0.2-1.3); CALCIUM 9.1 mg/dl (8.4-10.2); CREATININE 0.66 mg/dl (0.61-1.24); POTASSIUM 4.7 mmol/L (3.5-5.1); TOTAL PROTEIN 6.6 g/dl (6.1-8.1)
[2017-01-21] MEDS ORDERED: morphine 2 MG INJ IV ONE (02:00)
[2017-01-21] MEDS ORDERED: METR500T PO (02:40)
[2017-01-21] MEDS ORDERED: TRAM-40 PO (02:41)
[2017-01-21 02:52] VITALS: BP 100/61; PULSE 89; RESP 18
== END 2017-01-21 02:52 | disposition home or self-care (01) ==
LOC: E/R 21:00
DX: K52.9 Noninfective gastroenteritis and colitis, unspecified (principal); I10 Essential (primary) hypertension; J44.9 Chronic obstructive pulmonary disease, unspecified; F17.210 Nicotine dependence, cigarettes, uncomplicated
CPT/HCPCS: 36415; 80053; 81003; 83690; 85025; 96374; 96375; J2270; J2405; Z7502

== ENCOUNTER 2017-02-14 15:17 | Emergency (ER) | payer OTHER ==
[~2017-02-14] VITALS: Ht 355.6 cm; Wt 79.0 kg
[~2017-02-14 15:17] MED LIST changes: +METR500T PO; +TRAM-40 PO
[2017-02-14 15:23] VITALS: Ht 355.6 cm; Wt 79.0 kg
[2017-02-14] MEDS ORDERED: morphine 4 MG/ML VIAL IV STA (17:48)
[2017-02-14] MEDS ORDERED: SOD CHLORIDE 0.9% 1,000 ML IV STA (17:48)
[2017-02-14] MEDS ORDERED: ONDANSETRON 4 MG INJ IV STA (17:48)
--- NOTE | 2017-02-14 18:53 | RADRPT ---
PROCEDURE: CT abdomen and pelvis without IV contrast. CLINICAL INDICATION: Abdominal pain TECHNIQUE: CT scan of the abdomen and pelvis without contrast was performed on the [employer] volumetric [address] scanner. The patient was scanned without intravenous contrast. Coronal and sagittal refo rmatted images were obtained from the axial source images. The CTDI vol is 18.86 mGy and the DLP is 1077.11 mGy-cm. One or more of the following dose reduction techniques were used: Automated exposure control. Adjustment of the mA and/or kV according to patient size. Use of iterative reconstruction technique. COMPARISON: 04/29/2016 FINDINGS: CT abdomen: Subtle ground-glass opacities in the lung bases is suggested. The heart size is not enlarged and is without pericardial thickening or effusion. The liver is normal in size and density and is without focal mass or intrahepatic biliary dilatation . The spleen is normal in size and homogeneous in density. The stomach is grossly unremarkable. T he pancreas as visualized is normal. The gallbladder has been removed. No common bile duct dilatat ion is seen. The adrenal glands are symmetric and normal. The kidneys are symmetrically unremarkabl e as well. Small amount of bilateral renal calculi are once again seen measuring approximately 2 mm in size and have not changed significantly. No ureteral calculus or obstructive uropathy or mass les ion is seen. The aorta is of normal in caliber. Aortic calcifications are seen. There is no retroperitoneal lymph adenopathy. The alina hepatis region is clear. A right hemicolectomy is seen which is new compared to the prior examination. Inflammatory changes in the adjacent mesentery of the right hemicolectomy is seen. Sigmoid and descending colon diverticulosis is seen without evidence of diverticulitis. A ventral hernia is seen just right of midline containing segments of small bowel without evidence of obstruction. The remainder of the small and large bowel and mesentery, as visualized, are otherwise unremarkable. No inflammatory changes in the periappendiceal region is seen. CT pelvis: The pelvic organs are normal. The pelvic sidewalls and inguinal regions are clear. No pelvic mass, lymphadenopathy, or free fluid is seen. No acute inflammation is seen. The urinary bladder is wit hin normal limits. Bilateral pars defects at L5-S1 are once again seen. No osteolytic or osteoblastic lesion is detect ed. IMPRESSION: 1. Status post right hemicolectomy with adjacent inflammatory changes in the surrounding mesentery. Questionable if the findings are from recent postsurgical changes. The possibility of an inflammato ry or infectious process cannot be excluded. Continued follow-up may be of value as clinically warra nted. 2. Ventral hernia containing segments of small bowel without evidence of obstruction. 3. Suggestion of subtle ground-glass opacities in the lung bases which may be infectious or inflamm atory in nature. 4. Colonic diverticulosis without evidence of diverticulitis again seen. RPTAT: HPNM Isaias Hylton Physician Date Time Electronically viewed and signed by Isaias Hylton Physician on 02/14/2017 18:53 /
[2017-02-14 19:17] LABS: BILIRUBIN,INDIRECT 0.2 mg/dl (0-1.1); BILIRUBIN,TOTAL 0.2 mg/dl (0.2-1.3); CALCIUM 9.2 mg/dl (8.4-10.2); CREATININE 0.71 mg/dl (0.61-1.24); POTASSIUM 4.7 mmol/L (3.5-5.1); TOTAL PROTEIN 7.2 g/dl (6.1-8.1)
[2017-02-14 19:18] LABS: ALBUMIN/GLOBULIN RATIO 1.25
[2017-02-14 19:38] LABS: BASOPHILS % 0.4 % (0.0-2.0); EOSINOPHILS # 0.1 10^3/ul (0.0-0.5); EOSINOPHILS % 1.6 % (0.0-7.0); HEMATOCRIT 44.1 % (42.0-52.0); HEMOGLOBIN 14.5 g/dl (14.0-18.0); LYMPHOCYTES # 1.3 10^3/ul (0.8-2.9); LYMPHOCYTES % 23.6 % (15.0-51.0); MEAN CORPUSCULAR HEMOGLOBIN 30.3 pg (29.0-33.0); MEAN CORPUSCULAR HGB CONC 32.9 g/dl (32.0-37.0); MEAN CORPUSCULAR VOLUME 92.3 fl (82.0-101.0); MEAN PLATELET VOLUME 10.3 fl (7.4-10.4); MONOCYTE # 0.4 10^3/ul (0.3-0.9); MONOCYTES % 6.9 % (0.0-11.0); NEUTROPHIL # 3.7 10^3/ul (1.6-7.5); NEUTROPHILS % 67.3 % (39.0-77.0); PLATELET COUNT 246 10^3/UL (140-415); POSITIVE DIFF @See below; RED BLOOD COUNT 4.78 10^6/ul (4.70-6.10); RED CELL DISTRIBUTION WIDTH 13.2 % (11.5-14.5); WHITE BLOOD COUNT 5.5 10^3/ul (4.8-10.8)
[2017-02-14] MEDS ORDERED: NAPR-688 PO (19:47)
--- NOTE | 2017-02-14 19:54 | ERD ---
ER Documentation Chief Complaint Date/Time DATE: 02/14/17 TIME: 19:50 Chief Complaint AP, HAS HERNIA HPI This 41-year-old male comes complaining of pain about his ventral hernia that he has had for some time. He said that his surgeon referred him to another surgeon but he has not followed through on contacting his other surgeon. He denies nausea vomiting constipation fever and chills. ROS All systems reviewed and are negative except as per history of present illness. Medications Home Meds Active Scripts Naproxen* (Naproxen*) 500 Mg Tablet, 500 MG PO BID Y for PAIN, #10 TAB Prov:ROSLYN RODRIGUEZ DO 02/14/17 Tramadol Hcl* (Ultram*) 50 Mg Tablet, 50 MG PO Q6H Y for PAIN, #10 TAB Prov:JESSY ANNA MD 01/21/17 Metronidazole* (Flagyl*) 500 Mg Tablet, 500 MG PO TID for 10 Days, TAB Prov:JESSY ANNA MD 01/21/17 Ondansetron (Ondansetron Odt) 4 Mg Tab.rapdis, 4 MG PO Q6H Y for NAUSEA AND/OR VOMITING, #30 TAB Prov:ISAC WILLSON MD 11/21/16 Reported Medications Omeprazole* (Omeprazole*) 40 Mg Capsule.dr, 40 MG PO DAILY, #30 CAP 09/08/16 Multivitamin (MULTI VITAMIN DAILY) 1 Each Tablet, 1 TAB PO DAILY, TAB 09/08/16 Amlodipine Besylate* (Amlodipine Besylate*) 10 Mg Tablet, 10 MG PO DAILY, #30 TAB 09/08/16 Escitalopram Oxalate* (Lexapro*) 10 Mg Tablet, 30 MG PO QHS, #30 TAB TAKE 3 TAB 09/08/16 Aripiprazole* (Abilify*) 5 Mg Tab, 5 MG PO DAILY, #30 TAB 09/08/16 Albuterol Sulfate* (Albuterol Sulfate* Neb) 0.5%-0.5 Ml Neb, 1.25 MG NEB Q3H Y for WHEEZING AND SOB, EA 06/15/14 Allergies Allergies: Coded Allergies: penicillin G (Verified Allergy, Mild, 09/08/16) fluphenazine (Verified Allergy, Unknown, cause extrapyramidol, 09/08/16) haloperidol (Verified Allergy, Unknown, cause extrapyramidol, 09/08/16) ketorolac (Verified Allergy, Unknown, 09/08/16) olanzapine (Verified Allergy, Unknown, cause extrapyramidol, 09/08/16) ziprasidone (Verified Allergy, Unknown, 09/08/16) PMhx/Soc History of Surgery: Yes (CHOLECYSTECTOMY, TONSILLECTOMY, APPENDECTOMY, HERNIA REPAIR, SBO SX, SHOU) Anesthesia Reaction: No Hx Neurological Disorder: No Hx Respiratory Disorders: Yes (COPD) Hx Cardiac Disorders: Yes (HTN) Hx Psychiatric Problems: Yes (MOOD DISORDER) Hx Miscellaneous Medical Probl: Yes (DIVERTICULITIS, GERD, L rib fracture, L lung collapse p fall) Hx Alcohol Use: No Hx Substance Use: No Hx Tobacco Use: Yes (1.5 packs/ day) Smoking Status: Current every day smoker Physical Exam Vitals Vital Signs Date Time Temp Pulse Resp B/P Pulse Ox O2 Delivery O2 Flow Rate FiO2 02/14/17 18:30 98.1 63 18 111/77 98 Room Air 02/14/17 15:23 98.1 87 18 119/62 99 Physical Exam Const: [] No distress whatsoever Head: Atraumatic Eyes: Normal Conjunctiva ENT: Normal External Ears, Nose and Mouth. Neck: Full range of motion..~ No meningismus. Resp: Clear to auscultation bilaterally Cardio: Regular rate and rhythm, no murmurs Abd: Soft, reducible 6 x 6 cm ventral hernia with no signs of tenderness on palpation, non distended. Normal bowel sounds Skin: No petechiae or rashes Back: No midline or flank tenderness Ext: No cyanosis, or edema Neur: Awake and alert Psych: Normal Mood and Affect Result Diagram: 02/14/17182402/14/171824 Results 24 hrs Laboratory Tests Test 02/14/17 18:25 White Blood Count 5.510^3/ul Red Blood Count 4.7810^6/ul Hemoglobin 14.5g/dl Hematocrit 44.1% Mean Corpuscular Volume 92.3fl Mean Corpuscular Hemoglobin 30.3pg Mean Corpuscular Hemoglobin Concent 32.9g/dl Red Cell Distribution Width 13.2% Platelet Count 89237^3/UL Mean Platelet Volume 10.3fl Neutrophils % 67.3% Lymphocytes % 23.6% Monocytes % 6.9% Eosinophils % 1.6% Basophils % 0.4% Nucleated Red Blood Cells % 0.0/100WBC Neutrophils # 3.710^3/ul Lymphocytes # 1.310^3/ul Monocytes # 0.410^3/ul Eosinophils # 0.110^3/ul Basophils # 0.010^3/ul Nucleated Red Blood Cells # 0.010^3/ul Sodium Level 139mmol/L Potassium Level 4.7mmol/L Chloride Level 105mmol/L Carbon Dioxide Level 28mmol/L Anion Gap 11 Blood Urea Nitrogen 7mg/dl Creatinine 0.71mg/dl Glucose Level 70mg/dl Calcium Level 9.2mg/dl Total Bilirubin 0.2mg/dl Direct Bilirubin 0.00mg/dl Indirect Bilirubin 0.2mg/dl Aspartate Amino Transf (AST/SGOT) 21IU/L Alanine Aminotransferase (ALT/SGPT) 27IU/L Alkaline Phosphatase 71IU/L Total Protein 7.2g/dl Albumin 4.0g/dl Globulin 3.20g/dl Albumin/Globulin Ratio 1.25 Lipase 70U/L Current Medications Medications (Trade) Dose Ordered Sig/Madeline Route PRN Reason Start Time Stop Time Status Last Admin Dose Admin Sodium Chloride (NS) 1,000 ml @ 1,000 mls/hr Q1H STAT IV 02/14/17 17:48 02/14/17 18:47 DC 02/14/17 17:48 Morphine Sulfate (morphine) 4 mg ONCE STAT IV 02/14/17 17:48 02/14/17 17:50 DC 02/14/17 17:48 Ondansetron HCl (Zofran Inj) 4 mg ONCE STAT IV 02/14/17 17:48 02/14/17 17:50 DC 02/14/17 17:48 Procedures/MDM Abdominal pain with easily reducible hernia. Mild colon Inflammation on CT and a completely normal laboratories. Patient was given 4 mg of morphine and 4 mg of Zofran which resolved his symptoms. Is also given a liter of fluid. I do suspect possible drug-seeking behavior in this patient who presents emergency room rather than 20 times for pain complaints and allergy profile allergic to both Toradol and Haldol. I am discharging with naproxen and primary care follow -up. Return precautions also given. Abdomen pelvis interpretation: Mild: Edema, intestine containing hernia with no signs of incarceration or strangulation, no free air perforation, no colon obstruction, no fractures Departure Diagnosis: Primary Impression: Ventral hernia Additional Impression: Abdominal pain Condition: Stable Patient Instructions: Abdominal Pain, How a Hernia Develops Additional Instructions: Call your primary care doctor TOMORROW for an appointment during the next 1-2 days.See the doctor sooner or return here if your condition worsens before your appointment time. ROSLYN RODRIGUEZ DO Feb 14, 2017 19:54
[2017-02-14 20:03] VITALS: BP 172/72; PULSE 60; RESP 18; TEMP 98.1
== END 2017-02-14 20:05 | disposition home or self-care (01) ==
LOC: E/R 15:17
DX: K43.9 Ventral hernia without obstruction or gangrene (principal); J44.9 Chronic obstructive pulmonary disease, unspecified; I10 Essential (primary) hypertension; F17.210 Nicotine dependence, cigarettes, uncomplicated
CPT/HCPCS: 36415; 74176; 80053; 83690; 85025; 96374; 96375; J2270; J2405; J7030; Z7502

== ENCOUNTER 2017-03-20 13:36 | Emergency (ER) | payer OTHER ==
[~2017-03-20] VITALS: Ht 177.8 cm; Wt 93.0 kg
[~2017-03-20 13:36] MED LIST changes: +NAPR-688 PO
[2017-03-20 13:42] VITALS: Ht 177.8 cm; Wt 93.0 kg
--- NOTE | 2017-03-20 16:13 | ERD ---
ER Documentation Chief Complaint Chief Complaint ABD PAIN FROM HERNIA HPI This is a 51-year-old gentleman well-known to this ER for abdominal pain who presents for evaluation of his abdominal, ventral hernia. The patient states that he has noted an increase in size of his ventral hernia now left of midline. He states that he recently saw general surgeon but could not schedule surgery for 9 months. Patient denies any abdominal pain nausea or vomiting. He states that he is passing gas and stool without difficulty. He otherwise has no complaints. ROS All systems reviewed and are negative except as per history of present illness. Medications Home Meds Active Scripts Naproxen* (Naproxen*) 500 Mg Tablet, 500 MG PO BID Y for PAIN, #10 TAB Prov:ROSLYN RODRIGUEZ DO 02/14/17 Tramadol Hcl* (Ultram*) 50 Mg Tablet, 50 MG PO Q6H Y for PAIN, #10 TAB Prov:JESSY ANNA MD 01/21/17 Metronidazole* (Flagyl*) 500 Mg Tablet, 500 MG PO TID for 10 Days, TAB Prov:JESSY ANNA MD 01/21/17 Ondansetron (Ondansetron Odt) 4 Mg Tab.rapdis, 4 MG PO Q6H Y for NAUSEA AND/OR VOMITING, #30 TAB Prov:ISAC WILLSON MD 11/21/16 Reported Medications Omeprazole* (Omeprazole*) 40 Mg Capsule.dr, 40 MG PO DAILY, #30 CAP 09/08/16 Multivitamin (MULTI VITAMIN DAILY) 1 Each Tablet, 1 TAB PO DAILY, TAB 09/08/16 Amlodipine Besylate* (Amlodipine Besylate*) 10 Mg Tablet, 10 MG PO DAILY, #30 TAB 09/08/16 Escitalopram Oxalate* (Lexapro*) 10 Mg Tablet, 30 MG PO QHS, #30 TAB TAKE 3 TAB 09/08/16 Aripiprazole* (Abilify*) 5 Mg Tab, 5 MG PO DAILY, #30 TAB 09/08/16 Albuterol Sulfate* (Albuterol Sulfate* Neb) 0.5%-0.5 Ml Neb, 1.25 MG NEB Q3H Y for WHEEZING AND SOB, EA 06/15/14 Allergies Allergies: Coded Allergies: penicillin G (Verified Allergy, Mild, 09/08/16) fluphenazine (Verified Allergy, Unknown, cause extrapyramidol, 09/08/16) haloperidol (Verified Allergy, Unknown, cause extrapyramidol, 09/08/16) ketorolac (Verified Allergy, Unknown, 09/08/16) olanzapine (Verified Allergy, Unknown, cause extrapyramidol, 09/08/16) ziprasidone (Verified Allergy, Unknown, 09/08/16) PMhx/Soc History of Surgery: Yes (CHOLECYSTECTOMY, TONSILLECTOMY, APPENDECTOMY, HERNIA REPAIR, SBO SX, SHOU) Anesthesia Reaction: No Hx Neurological Disorder: No Hx Respiratory Disorders: Yes (COPD) Hx Cardiac Disorders: Yes (HTN) Hx Psychiatric Problems: Yes (MOOD DISORDER) Hx Miscellaneous Medical Probl: Yes (DIVERTICULITIS, GERD, L rib fracture, L lung collapse p fall) Hx Alcohol Use: No Hx Substance Use: No Hx Tobacco Use: Yes (1.5 packs/ day) FmHx Family History: No diabetes Physical Exam Vitals Vital Signs Date Time Temp Pulse Resp B/P Pulse Ox O2 Delivery O2 Flow Rate FiO2 03/20/17 13:42 97.9 95 18 133/68 96 Physical Exam General: Well developed, well nourished, no acute distress Head: Normocephalic, atraumatic. Eyes: Pupils equally reactive, EOM intact ENT: Moist mucous membranes Neck: Supple, no lymphadenopathy Respiratory: Lungs clear bilaterally, no distress Cardiovascular: RRR, no murmurs, rubs, or gallops Abdominal: Soft, the patient has a ventral hernia that is irregular and crosses the midline but is easily reducible, non-discolored, and non-tender : Deferred MSK: No edema, no unilateral swelling, 5/5 strength Neurologic: Alert and oriented, moving all extremities, normal speech, no focal weakness, no cerebellar signs Skin: No rash Psych: Normal mood Procedures/MDM The patient has evidence of a ventral hernia that appears to be increasing slightly in size. However, it is easily reducible and nontender without signs or symptoms concerning for incarceration or strangulation or bowel obstruction. It should be noted that the patient has many and multiple visits to the emergency room for multiple pain related complaints. He has a recent negative CT scan approximately 1-1/2 months ago. I do not believe the patient requires advanced imaging. The patient has followed up with a general surgeon but is not happy with a 9 month timeframe. I will advised the patient that it can take this long to schedule this type of surgery. The patient was given alternative means and different surgeon recommendations for discharge. The patient can be safely discharged from the emergency room. He does not exhibit the sign of an acute medical condition that requires stabilization of further investigation. We discussed follow up with the patient's primary care doctor within 24 to 48 hours as needed. We also discussed return to the emergency room for worsening symptoms or worsening condition. Outpatient referral: General surgery Departure Diagnosis: Primary Impression: Ventral hernia Obstruction and gangrene presence: without obstruction or gangrene Qualified Code: K43.9 - Ventral hernia without obstruction or gangrene Condition: Good Patient Instructions: Hernia Repair Surgery, How a Hernia Develops, Hernia ( Inguinal, Ventral, Umbilical) Referrals: KARIE KUHN M.D., MICHAEL A. MD [facility] YOU HAVE RECEIVED A MEDICAL SCREENING EXAM AND THE RESULTS INDICATE THAT YOU DO NOT HAVE A CONDITION THAT REQUIRES URGENT TREATMENT IN THE EMERGENCY DEPARTMENT. FURTHER EVALUATION AND TREATMENT OF YOUR CONDITION CAN WAIT UNTIL YOU ARE SEEN IN YOUR DOCTORS OFFICE WITHIN THE NEXT 1-2 DAYS. IT IS YOUR RESPONSIBILITY TO MAKE AN APPOINTMENT FOR FOLOW-UP CARE. IF YOU HAVE A PRIMARY DOCTOR --you should call your primary doctor and schedule an appointment IF YOU DO NOT HAVE A PRIMARY DOCTOR YOU CAN CALL OUR PHYSICIAN REFERRAL HOTLINE AT IF YOU CAN NOT AFFORD TO SEE A PHYSICIAN YOU CAN CHOSE FROM THE FOLLOWING [facility] [address] [facility]. [facility] [address] [facility]. [facility] [address] [facility]. [facility] [address] [facility]. [facility] [address] [facility]. [facility]. [address] [facility] YOU HAVE RECEIVED A MEDICAL SCREENING EXAM AND THE RESULTS INDICATE THAT YOU DO NOT HAVE A CONDITION THAT REQUIRES URGENT TREATMENT IN THE EMERGENCY DEPARTMENT. FURTHER EVALUATION AND TREATMENT OF YOUR CONDITION CAN WAIT UNTIL YOU ARE SEEN IN YOUR DOCTORS OFFICE WITHIN THE NEXT 1-2 DAYS. IT IS YOUR RESPONSIBILITY TO MAKE AN APPOINTMENT FOR FOLOW-UP CARE. IF YOU HAVE A PRIMARY DOCTOR --you should call your primary doctor and schedule and appointment IF YOU DO NOT HAVE A PRIMARY DOCTOR YOU CAN CALL OUR PHYSICIAN REFERRAL HOTLINE AT . IF YOU CAN NOT AFFORD TO SEE A PHYSICIAN YOU CAN CHOSE FROM THE FOLLOWING [facility] INSTITUTIONS: [facility] [address] [place], [place] [id number] [place] [address] [address] [place] [address] [facility] + [facility] [address] [place] [address] Additional Instructions: Please follow with a general surgeon to be evaluated for nonemergent hernia surgery. Return for pain or vomiting. ANDREW MADRID MD Mar 20, 2017 16:13
--- NOTE | 2017-03-20 16:13 | ERD ---
ER Documentation Chief Complaint Chief Complaint ABD PAIN FROM HERNIA HPI This is a 51-year-old gentleman well-known to this ER for abdominal pain who presents for evaluation of his abdominal, ventral hernia. The patient states that he has noted an increase in size of his ventral hernia now left of midline. He states that he recently saw general surgeon but could not schedule surgery for 9 months. Patient denies any abdominal pain nausea or vomiting. He states that he is passing gas and stool without difficulty. He otherwise has no complaints. ROS All systems reviewed and are negative except as per history of present illness. Medications Home Meds Active Scripts Naproxen* (Naproxen*) 500 Mg Tablet, 500 MG PO BID Y for PAIN, #10 TAB Prov:ROSLYN RODRIGUEZ DO 02/14/17 Tramadol Hcl* (Ultram*) 50 Mg Tablet, 50 MG PO Q6H Y for PAIN, #10 TAB Prov:JESSY ANNA MD 01/21/17 Metronidazole* (Flagyl*) 500 Mg Tablet, 500 MG PO TID for 10 Days, TAB Prov:JESSY ANNA MD 01/21/17 Ondansetron (Ondansetron Odt) 4 Mg Tab.rapdis, 4 MG PO Q6H Y for NAUSEA AND/OR VOMITING, #30 TAB Prov:ISAC WILLSON MD 11/21/16 Reported Medications Omeprazole* (Omeprazole*) 40 Mg Capsule.dr, 40 MG PO DAILY, #30 CAP 09/08/16 Multivitamin (MULTI VITAMIN DAILY) 1 Each Tablet, 1 TAB PO DAILY, TAB 09/08/16 Amlodipine Besylate* (Amlodipine Besylate*) 10 Mg Tablet, 10 MG PO DAILY, #30 TAB 09/08/16 Escitalopram Oxalate* (Lexapro*) 10 Mg Tablet, 30 MG PO QHS, #30 TAB TAKE 3 TAB 09/08/16 Aripiprazole* (Abilify*) 5 Mg Tab, 5 MG PO DAILY, #30 TAB 09/08/16 Albuterol Sulfate* (Albuterol Sulfate* Neb) 0.5%-0.5 Ml Neb, 1.25 MG NEB Q3H Y for WHEEZING AND SOB, EA 06/15/14 Allergies Allergies: Coded Allergies: penicillin G (Verified Allergy, Mild, 09/08/16) fluphenazine (Verified Allergy, Unknown, cause extrapyramidol, 09/08/16) haloperidol (Verified Allergy, Unknown, cause extrapyramidol, 09/08/16) ketorolac (Verified Allergy, Unknown, 09/08/16) olanzapine (Verified Allergy, Unknown, cause extrapyramidol, 09/08/16) ziprasidone (Verified Allergy, Unknown, 09/08/16) PMhx/Soc History of Surgery: Yes (CHOLECYSTECTOMY, TONSILLECTOMY, APPENDECTOMY, HERNIA REPAIR, SBO SX, SHOU) Anesthesia Reaction: No Hx Neurological Disorder: No Hx Respiratory Disorders: Yes (COPD) Hx Cardiac Disorders: Yes (HTN) Hx Psychiatric Problems: Yes (MOOD DISORDER) Hx Miscellaneous Medical Probl: Yes (DIVERTICULITIS, GERD, L rib fracture, L lung collapse p fall) Hx Alcohol Use: No Hx Substance Use: No Hx Tobacco Use: Yes (1.5 packs/ day) FmHx Family History: No diabetes Physical Exam Vitals Vital Signs Date Time Temp Pulse Resp B/P Pulse Ox O2 Delivery O2 Flow Rate FiO2 03/20/17 13:42 97.9 95 18 133/68 96 Physical Exam General: Well developed, well nourished, no acute distress Head: Normocephalic, atraumatic. Eyes: Pupils equally reactive, EOM intact ENT: Moist mucous membranes Neck: Supple, no lymphadenopathy Respiratory: Lungs clear bilaterally, no distress Cardiovascular: RRR, no murmurs, rubs, or gallops Abdominal: Soft, the patient has a ventral hernia that is irregular and crosses the midline but is easily reducible, non-discolored, and non-tender : Deferred MSK: No edema, no unilateral swelling, 5/5 strength Neurologic: Alert and oriented, moving all extremities, normal speech, no focal weakness, no cerebellar signs Skin: No rash Psych: Normal mood Procedures/MDM The patient has evidence of a ventral hernia that appears to be increasing slightly in size. However, it is easily reducible and nontender without signs or symptoms concerning for incarceration or strangulation or bowel obstruction. It should be noted that the patient has many and multiple visits to the emergency room for multiple pain related complaints. He has a recent negative CT scan approximately 1-1/2 months ago. I do not believe the patient requires advanced imaging. The patient has followed up with a general surgeon but is not happy with a 9 month timeframe. I will advised the patient that it can take this long to schedule this type of surgery. The patient was given alternative means and different surgeon recommendations for discharge. The patient can be safely discharged from the emergency room. He does not exhibit the sign of an acute medical condition that requires stabilization of further investigation. We discussed follow up with the patient's primary care doctor within 24 to 48 hours as needed. We also discussed return to the emergency room for worsening symptoms or worsening condition. Outpatient referral: General surgery Departure Diagnosis: Primary Impression: Ventral hernia Obstruction and gangrene presence: without obstruction or gangrene Qualified Code: K43.9 - Ventral hernia without obstruction or gangrene Condition: Good Patient Instructions: Hernia Repair Surgery, How a Hernia Develops, Hernia ( Inguinal, Ventral, Umbilical) Referrals: KARIE KUHN M.D., MICHAEL A. MD [facility] YOU HAVE RECEIVED A MEDICAL SCREENING EXAM AND THE RESULTS INDICATE THAT YOU DO NOT HAVE A CONDITION THAT REQUIRES URGENT TREATMENT IN THE EMERGENCY DEPARTMENT. FURTHER EVALUATION AND TREATMENT OF YOUR CONDITION CAN WAIT UNTIL YOU ARE SEEN IN YOUR DOCTORS OFFICE WITHIN THE NEXT 1-2 DAYS. IT IS YOUR RESPONSIBILITY TO MAKE AN APPOINTMENT FOR FOLOW-UP CARE. IF YOU HAVE A PRIMARY DOCTOR --you should call your primary doctor and schedule an appointment IF YOU DO NOT HAVE A PRIMARY DOCTOR YOU CAN CALL OUR PHYSICIAN REFERRAL HOTLINE AT IF YOU CAN NOT AFFORD TO SEE A PHYSICIAN YOU CAN CHOSE FROM THE FOLLOWING [facility] [address] [facility]. [facility] [address] [facility] [address] [facility]. [facility] [facility]. [facility] [address] [facility]. [facility]. [address] [facility] YOU HAVE RECEIVED A MEDICAL SCREENING EXAM AND THE RESULTS INDICATE THAT YOU DO NOT HAVE A CONDITION THAT REQUIRES URGENT TREATMENT IN THE EMERGENCY DEPARTMENT. FURTHER EVALUATION AND TREATMENT OF YOUR CONDITION CAN WAIT UNTIL YOU ARE SEEN IN YOUR DOCTORS OFFICE WITHIN THE NEXT 1-2 DAYS. IT IS YOUR RESPONSIBILITY TO MAKE AN APPOINTMENT FOR FOLOW-UP CARE. IF YOU HAVE A PRIMARY DOCTOR --you should call your primary doctor and schedule and appointment IF YOU DO NOT HAVE A PRIMARY DOCTOR YOU CAN CALL OUR PHYSICIAN REFERRAL HOTLINE AT . IF YOU CAN NOT AFFORD TO SEE A PHYSICIAN YOU CAN CHOSE FROM THE FOLLOWING [facility] INSTITUTIONS: [facility] [address] [place], [place] [id number] [place] [address] [address] [place] [address] [facility] [address] [place] [address] Additional Instructions: Please follow with a general surgeon to be evaluated for nonemergent hernia surgery. Return for pain or vomiting. ANDREW MADRID MD Mar 20, 2017 16:13
--- NOTE | 2017-03-20 16:13 | ERD ---
ER Documentation Chief Complaint Chief Complaint ABD PAIN FROM HERNIA HPI This is a 51-year-old gentleman well-known to this ER for abdominal pain who presents for evaluation of his abdominal, ventral hernia. The patient states that he has noted an increase in size of his ventral hernia now left of midline. He states that he recently saw general surgeon but could not schedule surgery for 9 months. Patient denies any abdominal pain nausea or vomiting. He states that he is passing gas and stool without difficulty. He otherwise has no complaints. ROS All systems reviewed and are negative except as per history of present illness. Medications Home Meds Active Scripts Naproxen* (Naproxen*) 500 Mg Tablet, 500 MG PO BID Y for PAIN, #10 TAB Prov:ROSLYN RODRIGUEZ DO 02/14/17 Tramadol Hcl* (Ultram*) 50 Mg Tablet, 50 MG PO Q6H Y for PAIN, #10 TAB Prov:JESSY ANNA MD 01/21/17 Metronidazole* (Flagyl*) 500 Mg Tablet, 500 MG PO TID for 10 Days, TAB Prov:JESSY ANNA MD 01/21/17 Ondansetron (Ondansetron Odt) 4 Mg Tab.rapdis, 4 MG PO Q6H Y for NAUSEA AND/OR VOMITING, #30 TAB Prov:SIAC WILLSON MD 11/21/16 Reported Medications Omeprazole* (Omeprazole*) 40 Mg Capsule.dr, 40 MG PO DAILY, #30 CAP 09/08/16 Multivitamin (MULTI VITAMIN DAILY) 1 Each Tablet, 1 TAB PO DAILY, TAB 09/08/16 Amlodipine Besylate* (Amlodipine Besylate*) 10 Mg Tablet, 10 MG PO DAILY, #30 TAB 09/08/16 Escitalopram Oxalate* (Lexapro*) 10 Mg Tablet, 30 MG PO QHS, #30 TAB TAKE 3 TAB 09/08/16 Aripiprazole* (Abilify*) 5 Mg Tab, 5 MG PO DAILY, #30 TAB 09/08/16 Albuterol Sulfate* (Albuterol Sulfate* Neb) 0.5%-0.5 Ml Neb, 1.25 MG NEB Q3H Y for WHEEZING AND SOB, EA 06/15/14 Allergies Allergies: Coded Allergies: penicillin G (Verified Allergy, Mild, 09/08/16) fluphenazine (Verified Allergy, Unknown, cause extrapyramidol, 09/08/16) haloperidol (Verified Allergy, Unknown, cause extrapyramidol, 09/08/16) ketorolac (Verified Allergy, Unknown, 09/08/16) olanzapine (Verified Allergy, Unknown, cause extrapyramidol, 09/08/16) ziprasidone (Verified Allergy, Unknown, 09/08/16) PMhx/Soc History of Surgery: Yes (CHOLECYSTECTOMY, TONSILLECTOMY, APPENDECTOMY, HERNIA REPAIR, SBO SX, SHOU) Anesthesia Reaction: No Hx Neurological Disorder: No Hx Respiratory Disorders: Yes (COPD) Hx Cardiac Disorders: Yes (HTN) Hx Psychiatric Problems: Yes (MOOD DISORDER) Hx Miscellaneous Medical Probl: Yes (DIVERTICULITIS, GERD, L rib fracture, L lung collapse p fall) Hx Alcohol Use: No Hx Substance Use: No Hx Tobacco Use: Yes (1.5 packs/ day) FmHx Family History: No diabetes Physical Exam Vitals Vital Signs Date Time Temp Pulse Resp B/P Pulse Ox O2 Delivery O2 Flow Rate FiO2 03/20/17 13:42 97.9 95 18 133/68 96 Physical Exam General: Well developed, well nourished, no acute distress Head: Normocephalic, atraumatic. Eyes: Pupils equally reactive, EOM intact ENT: Moist mucous membranes Neck: Supple, no lymphadenopathy Respiratory: Lungs clear bilaterally, no distress Cardiovascular: RRR, no murmurs, rubs, or gallops Abdominal: Soft, the patient has a ventral hernia that is irregular and crosses the midline but is easily reducible, non-discolored, and non-tender : Deferred MSK: No edema, no unilateral swelling, 5/5 strength Neurologic: Alert and oriented, moving all extremities, normal speech, no focal weakness, no cerebellar signs Skin: No rash Psych: Normal mood Procedures/MDM The patient has evidence of a ventral hernia that appears to be increasing slightly in size. However, it is easily reducible and nontender without signs or symptoms concerning for incarceration or strangulation or bowel obstruction. It should be noted that the patient has many and multiple visits to the emergency room for multiple pain related complaints. He has a recent negative CT scan approximately 1-1/2 months ago. I do not believe the patient requires advanced imaging. The patient has followed up with a general surgeon but is not happy with a 9 month timeframe. I will advised the patient that it can take this long to schedule this type of surgery. The patient was given alternative means and different surgeon recommendations for discharge. The patient can be safely discharged from the emergency room. He does not exhibit the sign of an acute medical condition that requires stabilization of further investigation. We discussed follow up with the patient's primary care doctor within 24 to 48 hours as needed. We also discussed return to the emergency room for worsening symptoms or worsening condition. Outpatient referral: General surgery Departure Diagnosis: Primary Impression: Ventral hernia Obstruction and gangrene presence: without obstruction or gangrene Qualified Code: K43.9 - Ventral hernia without obstruction or gangrene Condition: Good Patient Instructions: Hernia Repair Surgery, How a Hernia Develops, Hernia ( Inguinal, Ventral, Umbilical) Referrals: KARIE KUHN M.D., MICHAEL A. MD [facility] YOU HAVE RECEIVED A MEDICAL SCREENING EXAM AND THE RESULTS INDICATE THAT YOU DO NOT HAVE A CONDITION THAT REQUIRES URGENT TREATMENT IN THE EMERGENCY DEPARTMENT. FURTHER EVALUATION AND TREATMENT OF YOUR CONDITION CAN WAIT UNTIL YOU ARE SEEN IN YOUR DOCTORS OFFICE WITHIN THE NEXT 1-2 DAYS. IT IS YOUR RESPONSIBILITY TO MAKE AN APPOINTMENT FOR FOLOW-UP CARE. IF YOU HAVE A PRIMARY DOCTOR --you should call your primary doctor and schedule an appointment IF YOU DO NOT HAVE A PRIMARY DOCTOR YOU CAN CALL OUR PHYSICIAN REFERRAL HOTLINE AT IF YOU CAN NOT AFFORD TO SEE A PHYSICIAN YOU CAN CHOSE FROM THE FOLLOWING [facility] [address] [facility]. [facility] [address] [facility]. [facility] [address] [facility] [address] [facility] [address] [facility]. [facility]. [address] [facility] YOU HAVE RECEIVED A MEDICAL SCREENING EXAM AND THE RESULTS INDICATE THAT YOU DO NOT HAVE A CONDITION THAT REQUIRES URGENT TREATMENT IN THE EMERGENCY DEPARTMENT. FURTHER EVALUATION AND TREATMENT OF YOUR CONDITION CAN WAIT UNTIL YOU ARE SEEN IN YOUR DOCTORS OFFICE WITHIN THE NEXT 1-2 DAYS. IT IS YOUR RESPONSIBILITY TO MAKE AN APPOINTMENT FOR FOLOW-UP CARE. IF YOU HAVE A PRIMARY DOCTOR --you should call your primary doctor and schedule and appointment IF YOU DO NOT HAVE A PRIMARY DOCTOR YOU CAN CALL OUR PHYSICIAN REFERRAL HOTLINE AT . IF YOU CAN NOT AFFORD TO SEE A PHYSICIAN YOU CAN CHOSE FROM THE FOLLOWING [facility] INSTITUTIONS: [facility] [address] [place], [place] [id number] [place] [address] [address] [place] [address] [facility] + [facility] [address] [place] [address] Additional Instructions: Please follow with a general surgeon to be evaluated for nonemergent hernia surgery. Return for pain or vomiting. ANDREW MADRID MD Mar 20, 2017 16:13
[2017-03-20 16:19] VITALS: BP 123/70; PULSE 66; RESP 18; TEMP 98.1
== END 2017-03-20 16:22 | disposition home or self-care (01) ==
LOC: E/R 13:36
DX: K43.9 Ventral hernia without obstruction or gangrene (principal); J44.9 Chronic obstructive pulmonary disease, unspecified; I10 Essential (primary) hypertension; F17.210 Nicotine dependence, cigarettes, uncomplicated
CPT/HCPCS: 99282

== ENCOUNTER 2017-05-01 16:29 | Emergency (ER) | payer SELFPAY ==
[~2017-05-01] VITALS: Ht 170.2 cm; Wt 98.8 kg
[2017-05-01 16:37] VITALS: Ht 170.2 cm; Wt 98.8 kg
== END 2017-05-01 20:12 | disposition left against medical advice (07) ==
LOC: E/R 16:29
DX: Z53.21 Procedure and treatment not carried out due to patient leaving prior to being seen by health care provider (principal)

== ENCOUNTER → 2017-05-10 | Emergency (ER) | payer OTHER ==
[~2017-05-10] VITALS: Ht 165.1 cm; Wt 90.0 kg
[2017-05-10 13:10] VITALS: Ht 165.1 cm; Wt 90.0 kg
--- NOTE | 2017-05-10 19:09 | ERD ---
ER Documentation Chief Complaint Chief Complaint AP WITH VOMITING AND DIARRHEA HPI Patient is a 51-year-old male with a history of colitis and hernia who presents with abdominal pain. He said that he has abdominal pain and blood in his bowels. He has nausea and vomiting as well. He said that it started 4 days ago. Upon review of old medical records he has multiple visits to the ER and is well-known to myself into our staff. Review of the emergency department information exchange system shows visits to 7 different emergency departments over the past 1 year. ROS All systems reviewed and are negative except as per history of present illness. Medications Home Meds Active Scripts Ondansetron (Ondansetron Odt) 4 Mg Tab.rapdis, 4 MG PO Q6H Y for NAUSEA AND/OR VOMITING, #10 TAB Prov:ISAC WILLSON MD 05/10/17 Discontinued Reported Medications Omeprazole* (Omeprazole*) 40 Mg Capsule.dr, 40 MG PO DAILY, #30 CAP 09/08/16 Multivitamin (MULTI VITAMIN DAILY) 1 Each Tablet, 1 TAB PO DAILY, TAB 09/08/16 Amlodipine Besylate* (Amlodipine Besylate*) 10 Mg Tablet, 10 MG PO DAILY, #30 TAB 09/08/16 Escitalopram Oxalate* (Lexapro*) 10 Mg Tablet, 30 MG PO QHS, #30 TAB TAKE 3 TAB 09/08/16 Aripiprazole* (Abilify*) 5 Mg Tab, 5 MG PO DAILY, #30 TAB 09/08/16 Albuterol Sulfate* (Albuterol Sulfate* Neb) 0.5%-0.5 Ml Neb, 1.25 MG NEB Q3H Y for WHEEZING AND SOB, EA 06/15/14 Discontinued Scripts Naproxen* (Naproxen*) 500 Mg Tablet, 500 MG PO BID Y for PAIN, #10 TAB Prov:ROSLYN RODRIGUEZ DO 02/14/17 Tramadol Hcl* (Ultram*) 50 Mg Tablet, 50 MG PO Q6H Y for PAIN, #10 TAB Prov:JESSY ANNA MD 01/21/17 Metronidazole* (Flagyl*) 500 Mg Tablet, 500 MG PO TID for 10 Days, TAB Prov:JESSY ANNA MD 01/21/17 Ondansetron (Ondansetron Odt) 4 Mg Tab.rapdis, 4 MG PO Q6H Y for NAUSEA AND/OR VOMITING, #30 TAB Prov:ISAC WILLSON MD 11/21/16 Allergies Allergies: Coded Allergies: penicillin G (Verified Allergy, Mild, 05/10/17) fluphenazine (Verified Allergy, Unknown, cause extrapyramidol, 05/10/17) haloperidol (Verified Allergy, Unknown, cause extrapyramidol, 05/10/17) ketorolac (Verified Allergy, Unknown, 05/10/17) olanzapine (Verified Allergy, Unknown, cause extrapyramidol, 05/10/17) ziprasidone (Verified Allergy, Unknown, 05/10/17) PMhx/Soc History of Surgery: Yes (CHOLECYSTECTOMY, TONSILLECTOMY, APPENDECTOMY, HERNIA REPAIR, SBO SX, SHOU) Anesthesia Reaction: No Hx Neurological Disorder: No Hx Respiratory Disorders: Yes (COPD) Hx Cardiac Disorders: Yes (HTN) Hx Psychiatric Problems: Yes (MOOD DISORDER) Hx Miscellaneous Medical Probl: Yes (DIVERTICULITIS, GERD, L rib fracture, L lung collapse p fall) Hx Alcohol Use: No Hx Substance Use: No Hx Tobacco Use: Yes (1.5 packs/ day) FmHx Family History: No diabetes Physical Exam Vitals Vital Signs Date Time Temp Pulse Resp B/P Pulse Ox O2 Delivery O2 Flow Rate FiO2 05/10/17 13:10 98.1 99 18 143/75 99 Physical Exam Const: No acute distress Head: Atraumatic Eyes: Normal Conjunctiva ENT: Normal External Ears, Nose and Mouth. Neck: Full range of motion..~ No meningismus. Resp: Clear to auscultation bilaterally Cardio: Regular rate and rhythm, no murmurs Abd: Soft, diffuse tenderness to palpation without rebound or guarding and no signs of obstruction Skin: No petechiae or rashes Back: No midline or flank tenderness Ext: No cyanosis, or edema Neur: Awake and alert Psych: Normal Mood and Affect Procedures/MDM Patient is a 51-year-old male who presents with abdominal pain. I believe this is likely chronic abdominal pain and I do not believe he requires further workup at this time. He has multiple visits for similar type presentations. I believe the risk of doing a CT scan of the abdomen pelvis outweigh the benefits given the risk of radiation. I do believe there is an element of drug-seeking behavior and I would not give him any narcotic medicines at this time. I offered Toradol, Tylenol, or ibuprofen which she refused. Will be discharged and he did not wait for his discharge paperwork was I told him he would not get narcotic medicines. The patient will need to follow-up with his primary doctor within 24 hours for reevaluation. At this point I doubt appendicitis, cholecystitis, pancreatitis, or bowel obstruction. Departure Diagnosis: Primary Impression: Abdominal pain Abdominal location: generalized Qualified Code: R10.84 - Generalized abdominal pain Additional Impression: Vomiting Vomiting type: unspecified Vomiting Intractability: non-intractable Nausea presence: with nausea Qualified Code: R11.2 - Non-intractable vomiting with nausea, unspecified vomiting type Condition: Fair Patient Instructions: Abdominal Pain, Vomiting (6Y-Adult) Referrals: LINNETTE STEELE (PCP) Additional Instructions: Call your primary care doctor TOMORROW for an appointment during the next 1-2 days.See the doctor sooner or return here if your condition worsens before your appointment time. ISAC WILLSON MD May 10, 2017 19:09
== END | disposition home or self-care (01) ==
LOC: E/R 13:03
DX: R10.84 Generalized abdominal pain (principal); R11.2 Nausea with vomiting, unspecified; I10 Essential (primary) hypertension; J44.9 Chronic obstructive pulmonary disease, unspecified; F17.210 Nicotine dependence, cigarettes, uncomplicated
CPT/HCPCS: 99283

== ENCOUNTER 2017-05-26 20:00 | Emergency (ER) | END 2017-05-27 02:13 | disposition home or self-care (01) ==

== ENCOUNTER 2017-06-15 18:59 | Emergency (ER) | END 2017-06-16 01:24 | disposition home or self-care (01) ==

== ENCOUNTER 2017-08-04 19:22 | Emergency (ER) | END 2017-08-04 20:38 | disposition home or self-care (01) ==